=== PATIENT | male | born 1995 | race Caucasian/White ===

== ENCOUNTER 2016-04-22 16:07 | Emergency (ER) | payer OTHER ==
[~2016-04-22] VITALS: Wt 100.0 kg
[~2016-04-22 16:07] MED LIST: ALBUTEROL INH; AZIT250T94 PO; HYDR-3498 PO; IBUP-1542 PO
[2016-04-22] MEDS ORDERED: LIDOCAINE 1% (MDV) 20 ML INJ SC ONE (17:30)
--- NOTE | 2016-04-22 18:42 | ERD ---
ER Documentation Chief Complaint Date/Time DATE: 04/22/16 TIME: 18:05 Chief Complaint LEFT RING FINGER LACERATION FROM A KNIFE. BLEEDING CONTROLLED HPI 20 y/o male presents to ED for left middle/long finger distal skin laceration/ avulsion. Patient stated that this happened at around 3:30 PM in the afternoon while he was slicing an onion using a kitchen knife at his house. Denies headache, loss of consciousness, dizziness, blurry vision, changes in vision, photophobia, facial pain, ear pain, throat pain, difficulty swallowing, neck pain, shoulder pain, chest pain, cough, hemoptysis, abdominal pain, back pain, loss of appetite, nausea, vomiting, hematochezia, diarrhea, constipation, urinary symptoms, bladder and bowel incontinences, extremity weakness, extremity tenderness, numbness or tingling sensation, difficulty walking, recent travel, recent exposure to illness, recent antibiotic use in the last 3 months, fever, chills. Allergy: Atropine, phenobarbital,hyoscyamine, scopolamine PMH: Asthma Medications: Denies Surgery: Right ear surgery when he was a kid. Family history: Denies Primary Social History: Right-handed. 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 Occasionally drinks alcoholic beverages. Denies smoking, use of illegal drugs. ROS All systems reviewed and are negative except as per history of present illness. Medications Home Meds Active Scripts Ibuprofen* (Motrin*) 800 Mg Tab, 800 MG PO Q6 Y for PAIN, #30 TAB Prov:MARY JOEL F 04/22/16 Hydrocodone/Acetaminophen ([place] 5-325 Tablet) 1 Each Tablet, 1 TAB PO Q6H Y for PAIN, #7 TAB Prov:MARY JOEL F 04/22/16 Bacitracin (BACITRAYCIN PLUS) 28 Gm Oint...g., 28 GM TP BID for 7 Days Prov:MARY JOEL F 04/22/16 Azithromycin* (Zithromax*) 250 Mg Tablet, 250 MG PO .JoPACK DIRECTED, #6 TAB TAKE 500 MG (2 TABS) THE FIRST DAY THEN 250 MG (1 TAB) DAYS 2-5 Prov:AL IZAGUIRRE PA-C 10/10/15 Hydrocodone Bit-Acetaminophen* ([place]*) 5-325 Mg Tab, 1 TAB PO Q6 Y for PAIN, # 14 TAB Prov:AL IZAGUIRRE PA-C 10/10/15 Ibuprofen* (Motrin*) 600 Mg Tab, 600 MG PO Q6, #30 TAB Prov:AL IZAGUIRRE PA-C 10/10/15 Reported Medications [Albuterol Inh] No Conflict Check 04/17/09 Allergies Allergies: Coded Allergies: atropine sulfate (Verified Allergy, Mild, RASH, 04/22/16) hyoscyamine sulfate (Verified Allergy, Mild, RASH, 04/22/16) phenobarbital (Verified Allergy, Mild, RASH, 04/22/16) scopolamine hydrobromide (Verified Allergy, Mild, RASH, 04/22/16) PMhx/Soc History of Surgery: Yes (EAR) Anesthesia Reaction: No Hx Neurological Disorder: No Hx Respiratory Disorders: Yes (ASTHMA) Hx Cardiac Disorders: No Hx Psychiatric Problems: No Hx Miscellaneous Medical Probl: No Hx Alcohol Use: No Hx Substance Use: No Hx Tobacco Use: No Smoking Status: Never smoker Physical Exam Vitals Vital Signs Date Time Temp Pulse Resp B/P Pulse Ox O2 Delivery O2 Flow Rate FiO2 04/22/16 16:38 98.8 62 20 140/74 99 Physical Exam CONSTITUTIONAL: Well-appearing; well-nourished; in no apparent distress. HEAD: Normocephalic; atraumatic. EYES: Conjunctiva clear, sclera non-icteric, EOM intact. PERRL Ears: Hearing intact. EACs clear, TMs non-bulging, non-inflamed, translucent & mobile, ossicles normal appearance, No obstructions, no erythema, no discharges Nose: No obstructions. No polyps. No external lesions. Mucosa non-inflamed. No external lesions, septum and turbinates normal. No rhinorrhea. No discharges. Frontal sinus is non-tender to palpation. Maxillary sinus is non-tender to palpation. MOUTH: Moist mucous membranes, no lesion, no obstructions, no vesicles, no thrush, patent airway Throat: Uvula in midline. Right tonsil is +1 with no erythema, no exudate. Left tonsil is +1 with no erythema, no exudate. Tolerating secretions well. Good gag reflex. Patent airway. Neck: Supple, without lesions, bruits, or adenopathy. No mass. Thyroid non- enlarged and non-tender to palpation. CHEST: Symmetrical chest. Respirations even and not labored. No retractions noted. CARDIOVASCULAR: Normal S1, S2. RRR. No murmurs, gallops. RESPIRATORY: Normal chest excursion with respiration; breath sounds clear and equal bilaterally; no wheezes, rhonchi, or rales. Breathing even and unlabored. Speaking in clear, full, and complete sentences w/ ease. ABDOMEN: Normal bowel sounds normal. Soft, round, non-distended, non-guarding, no tenderness, no rebound, no organomegaly, no masses, no pulsating abdominal mass. No hernia. No peritoneal signs. : No CVA tenderness. BACK: Symmetrical shoulder. Spine is midline without deformity, tenderness. No evidence of trauma or deformity. PELVIS: Stable pelvis. No evidence of trauma or deformity. MUSCULOSKELETAL: Normal gait and station. No misalignment, asymmetry, crepitation, defects, tenderness, masses, effusions, decreased range of motion, instability, atrophy or abnormal strength or tone in the head, neck, spine, ribs , pelvis or extremities. No calf tenderness. NEUROVASCULAR: Distal pulses are present. Pedal pulse are present, equal, and normal. Capillary refills are < 2 seconds. NEUROLOGIC: Alert and oriented x4. Speaks full and clear sentences. Cranial Nerves II-XII normal. Sensation to pain, touch, and proprioception normal. Grossly unremarkable. No neurologic deficits. Romberg test is negative. PSYCHOLOGICAL: The patients mood and manner are appropriate. No hallucinations , delusions. Not SI. Not HI. Has the capacity to decide for self SKIN: Normal for age and ethnicity; warm; dry; good turgor; no apparent lesions or exudates. No rashes, hives, discoloration. Laceration/avulsion to left medial/long distal/volar/superior finger measuring about 1 cm x 1 cm. Results 24 hrs Current Medications Medications (Trade) Dose Ordered Sig/Enoch Route PRN Reason Start Time Stop Time Status Last Admin Dose Admin Lidocaine (Xylocaine 1% (Mdv) 20 ml) 20 ml ONCE ONCE SC 04/22/16 17:30 04/22/16 17:31 DC Procedures/MDM Examination: SKIN: Normal for age and ethnicity; warm; dry; good turgor; no apparent lesions or exudates. No rashes, hives, discoloration. Laceration/avulsion to left medial/long distal/volar/superior finger measuring about 1 cm x 1 cm. Case and medical management was discussed with supervising doctor,Dr. Jett Banks who suggested the laceration/avulsion repair. Disease process, medical treatment was explained to the patient and family member. They verbalized understanding and agreed with the medical treatment and follow-up care. Treatment: Wound care; laceration repair Laceration repair: Pressure/copious irrigation with saline and Betadine; wound explored; no foreign bodies found; bone not visible; ligament not visible; lidocaine 1% 3 cc for digital block; Ethilon 5 oh was used 2 sutures in a figure of X to control the bleeding; loosely approximated; bleeding has stopped ; bacitracin ointment applied; dressing was applied. Re-evaluation: Patient tolerated well. Left long/middle distal finger has full function of flexion and extension with strength of 5/5. No active bleeding. Circulation and sensation is intact. No neurovascular deficits. Consultation: None Differential diagnosis: Laceration versus foreign body versus wound versus skin avulsion Medical decision makin20 y/o male presents to ED for left middle/long finger distal skin laceration/avulsion. Patient stated that this happened at around 3: 30 PM in the afternoon while he was slicing an onion using a kitchen knife at his house. Patient's complaint, physical findings, post treatment reevaluation are consistent with my final diagnosis of skin laceration/avulsion. Medications prescribed are the following: Bacitracin ointment, Tylenol and/or Motrin for pain and/or fever. [place] for severe pain. Patient and family member are made aware of the side effects and adverse reactions of the medications prescribed. Instructed on when to seek emergent and medical attention in case allergic/anaphylactic reactions or severe side effects and or adverse reactions to medications. Patient and family member verbalized understanding. Patient instructed Instructed to follow-up with his PCP in 24-48 hours. Come back to the emergency room in 2 days for a wound check. Come back to the emergency room in 7-10 days for suture removal. Instructed to Call 911 for chest pain, shortness of breath. Advised to come back here in ED as soon as possible for severity of symptoms which includes but not limited to: any new symptoms; shortness of breath/difficulty of breathing; cardiovascular changes; severe gastrointestinal symptoms; signs and symptoms of bleeding and or infection; signs of compartment syndrome/neurovascular changes; neurological changes/deficits. Patient and family member verbalized understanding. Upon discharge, patient is alert and oriented x 4, speaks full and clear sentences, denies pain, has no neurological deficits, has no neurovascular deficits, difficulty of breathing. Breathing even and unlabored. Lung sounds are clear to auscultation. Not in distress. No active bleeding. No signs and symptoms of bleeding or infection. Appears comfortable. Ambulatory with steady gait. Appears satisfied with care provided here in ED. Departure Diagnosis: Primary Impression: Finger injury Additional Impressions: Laceration Skin avulsion Condition: Good Additional Instructions: Follow-up with PCP in 24-48 hours. Come back to the emergency room in 2 days for wound check. Come back to the emergency room in 7-10 days for suture removal. Community resources also given to the patient and his family members. MARY JOEL Apr 22, 2016 18:38
[2016-04-22] MEDS ORDERED: IBUP800T25 PO (18:44)
[2016-04-22] MEDS ORDERED: BACI28OI5 TP (18:44)
[2016-04-22] MEDS ORDERED: HYDR-906 PO (18:44)
[2016-04-22 19:04] VITALS: BP 148/78; PULSE 60; RESP 16; TEMP 98.7
== END 2016-04-22 19:05 | disposition home or self-care (01) ==
LOC: FTE 16:07
DX: S61.215A Laceration without foreign body of left ring finger without damage to nail, initial encounter (principal); J45.909 Unspecified asthma, uncomplicated; S61.203A Unspecified open wound of left middle finger without damage to nail, initial encounter; W26.0XXA Contact with knife, initial encounter; Y92.009 Unspecified place in unspecified non-institutional (private) residence as the place of occurrence of the external cause
CPT/HCPCS: 12001; Z7610

== ENCOUNTER 2016-04-24 06:24 | Emergency (ER) | payer OTHER ==
[~2016-04-24] VITALS: Wt 100.0 kg
[~2016-04-24 06:24] MED LIST changes: +BACI28OI5 TP; +HYDR-906 PO; +IBUP800T25 PO
--- NOTE | 2016-04-24 07:45 | ERD ---
ER Documentation Chief Complaint Date/Time DATE: 04/24/16 TIME: 07:40 Chief Complaint left ring finger suture check 2 days post HPI This is a 20-year-old male who presents emergency department for wound recheck. Patient was seen here 2 days ago after left fourth digit finger laceration. Patient states he was cutting vegetables when he lacerated his finger. 2 days ago 2 sutures were placed to left fourth digit. Patient has not changed bandage since wound repair 2 days ago. Denies loss of sensation, numbness or tingling. Denies skin changes. Patient states area is bleeding. No other drainage, warmth or fever. ROS All systems reviewed and are negative except as per history of present illness. Medications Home Meds Active Scripts Ibuprofen* (Motrin*) 800 Mg Tab, 800 MG PO Q6 Y for PAIN, #30 TAB Prov:MARY JOEL 04/22/16 Hydrocodone/Acetaminophen ([place] 5-325 Tablet) 1 Each Tablet, 1 TAB PO Q6H Y for PAIN, #7 TAB Prov:MARY JOEL 04/22/16 Bacitracin (BACITRAYCIN PLUS) 28 Gm Oint...g., 28 GM TP BID for 7 Days Prov:MARY JOEL 04/22/16 Azithromycin* (Zithromax*) 250 Mg Tablet, 250 MG PO .ZPACK DIRECTED, #6 TAB TAKE 500 MG (2 TABS) THE FIRST DAY THEN 250 MG (1 TAB) DAYS 2-5 Prov:AL IZAGUIRRE PA-C 10/10/15 Hydrocodone Bit-Acetaminophen* ([place]*) 5-325 Mg Tab, 1 TAB PO Q6 Y for PAIN, # 14 TAB Prov:AL IZAGUIRRE PA-C 10/10/15 Ibuprofen* (Motrin*) 600 Mg Tab, 600 MG PO Q6, #30 TAB Prov:AL IZAGUIRRE PA-C 10/10/15 Reported Medications [Albuterol Inh] No Conflict Check 04/17/09 Allergies Allergies: Coded Allergies: atropine sulfate (Verified Allergy, Mild, RASH, 04/22/16) hyoscyamine sulfate (Verified Allergy, Mild, RASH, 04/22/16) phenobarbital (Verified Allergy, Mild, RASH, 04/22/16) scopolamine hydrobromide (Verified Allergy, Mild, RASH, 04/22/16) PMhx/Soc History of Surgery: Yes (EAR) Anesthesia Reaction: No Hx Neurological Disorder: No Hx Respiratory Disorders: Yes (ASTHMA) Hx Cardiac Disorders: No Hx Psychiatric Problems: No Hx Miscellaneous Medical Probl: No Hx Alcohol Use: No Hx Substance Use: No Hx Tobacco Use: No Smoking Status: Never smoker Physical Exam Vitals Vital Signs Date Time Temp Pulse Resp B/P Pulse Ox O2 Delivery O2 Flow Rate FiO2 04/24/16 06:27 98.0 55 20 135/68 98 Physical Exam Const: No acute distress, alert Head: Atraumatic Eyes: Normal Conjunctiva Skin: 1 cm linear laceration to distal end of left fourth digit. [address] Bleeding noted at suture site. No surrounding erythema, warmth or other drainage. No loss of sensation. Ext: No cyanosis, or edema Neur: Awake and alert Psych: Normal Mood and Affect Procedures/MDM ED COURSE: The patient was stable throughout ED course. Medical decision makin-year-old male presents emergency department for wound check. Patient had sutures placed to left fourth digit 2 days ago. Wound shows no evidence of infection, foreign body, neurologic injury, vascular injury, open joint or tendon laceration. Patient appropriate for outpatient follow up. Instructed patient to follow-up in ER for suture removal in 5 days. Instructed patient continue using bacitracin cream to area as needed. Return to ED for any high fever, chest pain , difficulty breathing, shortness breath, wheezing, vomiting, diarrhea, abdominal pain or any new or worsening symptoms. Patient verbalizes understanding. All questions answered at discharge. Departure Diagnosis: Primary Impression: Encounter for wound re-check Condition: Stable Patient Instructions: Wound Check, Lac F/U (No Infection) Referrals: GOYO YANG (PCP) Additional Instructions: Return to ED in 5 days for suture removal. Return to ED for any high fever, chest pain, difficulty breathing, shortness breath, wheezing, vomiting, diarrhea, abdominal pain or any new or worsening symptoms. ABRAHAM CAMPOS NP Apr 24, 2016 07:45
== END 2016-04-24 07:43 | disposition home or self-care (01) ==
LOC: FTE 06:24
DX: Z48.01 Encounter for change or removal of surgical wound dressing (principal); J45.909 Unspecified asthma, uncomplicated
CPT/HCPCS: 99281

== ENCOUNTER 2016-04-28 23:23 | Emergency (ER) | END 2016-04-29 02:16 | disposition home or self-care (01) | DX: Z48.02 Encounter for removal of sutures (principal); J45.909 Unspecified asthma, uncomplicated ==

== ENCOUNTER 2017-11-01 19:16 | Emergency (ER) | END 2017-11-01 21:27 | disposition home or self-care (01) ==

== ENCOUNTER 2018-09-15 07:01 | Emergency (ER) | payer OTHER ==
[~2018-09-15] VITALS: Ht 177.8 cm; Wt 106.1 kg
[~2018-09-15 07:01] MED LIST changes: +AZIT250T PO; -AZIT250T94 PO; +BEN50 PO; +HYDR-4011 PO; -HYDR-906 PO; -IBUP800T25 PO; +IBUP800T48 PO; +TRIA15CR55 TOP
[2018-09-15 07:05] VITALS: BP 153/97; PULSE 53; RESP 16; Ht 177.8 cm; Wt 106.1 kg
[2018-09-15] MEDS ORDERED: ALBU18HF INHALATION (07:38)
[2018-09-15] MEDS ORDERED: HC30CR25 TOP (07:38)
[2018-09-15] MEDS ORDERED: LORA10TA3 PO (07:38)
[2018-09-15] MEDS ORDERED: ACYC800T5 PO (07:38)
--- NOTE | 2018-09-15 07:51 | ERD ---
ER Documentation Chief Complaint Chief Complaint COLD SX (COUGH, NASAL CONGESTION) X1 MONTH, RASH UNDER RT ARM HPI 22-year-old male with history of asthma presents with complaint of cold-like symptoms for the past month. States that his employer told him he needed to come to the doctor in order to get seen. Additionally states he has had a rash under his right arm for the past several days. Patient is also requesting refill of his loratadine. States that he takes albuterol for his asthma as needed. Patient denies fever, night sweats, weight loss, fatigue, hemoptysis, wheezing, dyspnea, pleuritic chest pain, or orthopnea. ROS All systems reviewed and are negative except as per history of present illness. Medications Home Meds Active Scripts Acyclovir* (Zovirax*) 800 Mg Tablet, 800 MG PO 5 TIMES DAILY for 7 Days, TAB Prov:LATOYA VILLASEÑOR 09/15/18 Hydrocortisone* Topical (Hydrocortisone* Topical) 2.5%-28.3 Gm Cream..g., 1 APPLIC TOP BID, #1 TUB Prov:LATOYA VILLASEÑOR 09/15/18 Loratadine* (Loratadine*) 10 Mg Tablet, 10 MG PO DAILY, #30 TAB Prov:LATOYA VILLASEÑOR 09/15/18 Albuterol Sulfate* (Ventolin HFA*) 18 Gm Hfa.aer.ad, 2 PUFF INHALATION Q4H, #1 INHALER Prov:LATOYA VILLASEÑOR 09/15/18 Ibuprofen* (Motrin*) 600 Mg Tab, 600 MG PO Q6H PRN for PAIN AND OR ELEVATED TEMP, #30 TAB Prov:LASHONDA COOK NP 11/01/17 Diphenhydramine Hcl* (Benadryl*) 50 Mg Cap, 50 MG PO Q6H PRN for ITCHING/RASH, #30 CAP Prov:LASHONDA COOK NP 11/01/17 Triamcinolone Acetonide (Triamcinolone Acetonide) 0.1% - 15 Gm Cream.gm., 1 A PPLIC TOP BID, #1 TUB Prov:LASHONDA COOK NP 11/01/17 Ibuprofen* (Motrin*) 800 Mg Tab, 800 MG PO Q6 PRN for PAIN, #30 TAB Prov:PASILABAN,KLAR F 04/22/16 Hydrocodone/Acetaminophen ([place] 5-325 Tablet) 1 Each Tablet, 1 TAB PO Q6H PRN for PAIN, #7 TAB Prov:MARY JOEL 04/22/16 Bacitracin (BACITRAYCIN PLUS) 28 Gm Oint...g., 28 GM TP BID for 7 Days Prov:MARY JOEL 04/22/16 Azithromycin* (Zithromax*) 250 Mg Tablet, 250 MG PO .ZPACK DIRECTED, #6 TAB TAKE 500 MG (2 TABS) THE FIRST DAY THEN 250 MG (1 TAB) DAYS 2-5 Prov:AL IZAGUIRRE PA-C 10/10/15 Hydrocodone Bit-Acetaminophen* ([place]*) 5-325 Mg Tab, 1 TAB PO Q6 PRN for PAIN, #14 TAB Prov:AL IZAGUIRRE PA-C 10/10/15 Ibuprofen* (Motrin*) 600 Mg Tab, 600 MG PO Q6, #30 TAB Prov:AL IZAGUIRRE PA-C 10/10/15 Reported Medications [Albuterol Inh] No Conflict Check 04/17/09 Allergies Allergies: Coded Allergies: atropine sulfate (Verified Allergy, Mild, RASH, 04/22/16) hyoscyamine sulfate (Verified Allergy, Mild, RASH, 04/22/16) phenobarbital (Verified Allergy, Mild, RASH, 04/22/16) scopolamine hydrobromide (Verified Allergy, Mild, RASH, 04/22/16) PMhx/Soc History of Surgery: Yes (right ear) Anesthesia Reaction: No Hx Neurological Disorder: No Hx Respiratory Disorders: Yes (asthma) Hx Cardiac Disorders: Yes (HTN) Hx Psychiatric Problems: No Hx Miscellaneous Medical Probl: No Hx Alcohol Use: Yes (occassional) Hx Substance Use: No Hx Tobacco Use: No FmHx Family History: No diabetes, No coronary disease, No other Physical Exam Vitals Vital Signs Date Temp Pulse Resp B/P (MAP) Pulse Ox O2 O2 Flow FiO2 Time Delivery Rate 09/15/18 97.2 53 16 153/97 96 07:05 (115) Physical Exam Const: No acute distress Head: Atraumatic Eyes: Normal Conjunctiva ENT: Normal External Ears, Nose and Mouth. Neck: Full range of motion. No meningismus. Resp: Clear to auscultation bilaterally Cardio: Regular rate and rhythm, no murmurs Abd: Soft, non tender, non distended. Normal bowel sounds Skin: Erythematous papules noted over the lower right axilla. There is no draining or infection noted. Back: No midline or flank tenderness Ext: No cyanosis, or edema Neur: Awake and alert Psych: Normal Mood and Affect Procedures/MDM MDM: Patient's presentation is consistent with a common cold. Regarding patient's rash, appears to be either atopic dermatitis versus shingles. Patient states that he has had atopic dermatitis before but in different areas. Patient was advised to try treating with a hydrocortisone cream and if it does not work and it becomes painful he can take acyclovir. I also advised him that is contagious. Patient was given refill for albuterol as well as refill for loratadine. I have low suspicion for strep throat based on history and exam findings, as well as patient not meeting centor criteria for rapid strep testing. I have low suspicion for bacterial sinusitis, pneumonia, tuberculosis, meningitis, pneumothorax, PE, aspirated foreign body, respiratory distress, acute heart failure or other life threatening etiology based on patient history and exam findings. Most likely etiology is viral URI and no further tests are necessary.. Patient advised to rest and stay well hydrated. Patient discharged with strict ER precautions. Patient advised to follow up with PMD. All questions answered at discharge. Departure Diagnosis: Primary Impression: Rash Additional Impressions: Common cold Asthma Condition: Stable Patient Instructions: Adult Self-Care for Colds, Asthma, Shingles (Herpes Zoster) Additional Instructions: FOLLOW UP WITH YOUR PRIMARY CARE PHYSICIAN TOMORROW.Return to this facility if you are not improving as expected. LATOYA VILLASEÑOR Sep 15, 2018 07:51
== END 2018-09-15 08:24 | disposition home or self-care (01) ==
LOC: FTE 07:01
DX: R21 Rash and other nonspecific skin eruption (principal); J00 Acute nasopharyngitis [common cold]; J45.909 Unspecified asthma, uncomplicated; I10 Essential (primary) hypertension
CPT/HCPCS: 99283